=== PATIENT | male | born 1980 | race Caucasian/White ===

== ENCOUNTER 2018-02-01 07:51 | Day surgery (SDC) | payer MEDICAID ==
[~2018-02-01 07:51] MED LIST: ACETAMINOPHEN 1,000 MG/100 ML BTL IV ONE; CEFAZOLIN 2 Gram 2 GM/50 ML BAG IVPB ONE
[2018-02-01] MEDS ORDERED: LIDOCAINE 2% MDV (20MG/ML) 20ML VIAL IV ONE (07:52)
[2018-02-01] MEDS ORDERED: HYDROMORPHONE HCL 2 MG/ML VIAL IV ONE (07:52)
[2018-02-01] MEDS ORDERED: ONDANSETRON HCL IV 4 MG/2 ML VIAL IVP ONE (07:52)
[2018-02-01] MEDS ORDERED: BUPIVACAINE 0.5% W/EPI MPF 30 ML VIAL IVP ONE (07:52)
[2018-02-01] MEDS ORDERED: ROPIVACAINE HCL (NAROPIN) /PF 5MG/ML 20ML VIAL IV ONE (07:52)
[2018-02-01] MEDS ORDERED: BUPIVACAINE LIPOSOME 266MG/20ML VIAL IV ONE (07:52)
[2018-02-01] MEDS ORDERED: KETOROLAC 30 MG/ML VIAL IVP ONE (07:52)
[2018-02-01] MEDS ORDERED: FENTANYL PF 100MCG/2ML VIAL IV ONE (07:52)
[2018-02-01] MEDS ORDERED: DEXAMETHASONE 4 MG/ML 1ML VIAL IVP ONE ×2 (07:52)
[2018-02-01] MEDS ORDERED: MIDAZOLAM HCL 2MG/2ML VIAL IV ONE (07:52)
[2018-02-01] MEDS ORDERED: EPHEDRINE SULFATE 50 MG/ML ML IV ONE (07:52)
[2018-02-01] MEDS ORDERED: PROPOFOL 10 MG/ML VIAL IV ONE (07:52)
[2018-02-01] MEDS ORDERED: DESFLURANE 240 ML BTL INH ONE (07:52)
--- NOTE | 2018-02-03 21:50 | Operative Note ---
DATE OF SURGERY: 02/01/2018. PREOPERATIVE DIAGNOSES: 1. LEFT KNEE ACL RUPTURE. 2. MEDIAL AND LATERAL MENISCUS TEARS. POSTOPERATIVE DIAGNOSIS: 1. LEFT KNEE ACL RUPTURE. 2. MEDIAL AND LATERAL MENISCUS TEARS. PROCEDURE: 1. DIAGNOSTIC ARTHROSCOPY WITH INTRAOPERATIVE FLUOROSCOPIC-ASSISTED ACL RECONSTRUCTION WITH [id number] AUTOGRAFT. 2. ARTHROSCOPIC PARTIAL POSTERIOR HORN MEDIAL AND LATERAL MENISCECTOMIES. SURGEON: ÁNGEL LUKE M.D. ANESTHESIA: SPINAL. COMPLICATIONS: NONE. BLOOD LOSS: MINIMAL. OPERATIVE FINDINGS: Complete rupture of the ACL. Intact PCL. Degenerative shredded tear entire middle and posterior horns of the medial meniscus and a radial tear of the posterior center root of the posterior horn of the lateral meniscus. COMPONENTS PLACED: Two Arthrex Biointerference screws, one 7 mm and one 8 mm. INDICATION FOR OPERATION: This is a 37-year-old male who sustained an injury playing [employer]. He twisted his knee severely and felt a pop and an MRI showed his rupture and he was scheduled for the procedure above. He also had meniscus tears on the MRI. I explained all the risks and benefits to him in detail for the diagnoses and procedures including but not limited to infection, nerve injury, vessel injury, persistent pain, stiffness, numbness and tingling in his knee, re-rupture of the ACL and need for further procedures, blood clot, and all of his questions were answered. Rehab and course were outlined and he agreed to proceed. PROCEDURE: The patient brought to O.R. and placed in the supine position for proper surgery. Nonsterile leg ramos was previously applied and the left lower extremity and knee were prepped and draped in the usual sterile fashion. The right knee was prepped again with ChloraPrep and draped. Intraoperative time- out was performed. Preoperatively, the knee exam revealed he had 2+ Teresa's and anterior drawer and pivot shift, 2+ valgus opening in 30 degrees of flexion and then 0. Next, an anterior incision was marked over the harvest site for bone-patellar tendon-bone, infiltrated with 0.5% Marcaine with Epinephrine. Skin and subcutaneous tissues were dissected down to the bursa. We incised the bursa and the paratenon, elevated off the patellar tendon and exposed that adequately. Next, we planned to use a 2.5 cm bone block proximally and distally. We marked those off with electrocautery and ruler and then we cut it with a saw. We drilled three holes in each bone plug, placed #2 FiberWire suture through there as tag stitches and then connected the two bone plugs for a 1 cm wide graft. We prepared the graft on the back table, again for a 1 cm hole to both sides and marked the femur plug and our tibial plugs. Attention was turned to preparation now. Arthroscopic surgery was performed. We inserted the superior lateral inflow portal. Inferior medial and lateral ports were established and diagnostic arthroscopy performed. The suprapatellar pouch had synovitis and inflammation. It was otherwise normal. The medial gutter was normal. The medial compartment revealed a degenerative, completely shredded tear of the middle and posterior horns of the medial meniscus. We used a combination of basket biters and shaver and trimmed and smoothed that to as smooth and stable surface as possible. The cartilage here was intact. The ACL was completely ruptured, the mid substance. The PCL was intact. The lateral compartment revealed a slight radial tear of the posterior horn of the lateral meniscus. The remainder of the medial and anterior horns were intact. Cartilage was intact. Lateral gutter was normal. The patellofemoral compartment was normal. Next, we inserted a shaver and tissue ablator in the inferior medial portals and prepared both bony surfaces in the lateral femoral condyle wall and the tibial tubercle surfaces identifying the anterior horn of the lateral meniscus edge and the intermeniscal ligament for anatomic landmarks and the intercondylar ridge on the femur side. Next, we used a chondral pick and picked our target sites for our pins for both tunnels. Next, with the knee in about 110 degrees of flexion, we inserted our femoral Beath guide pin through the inferior medial portal and drilled with our low profile reamer a 10 mm hole diameter by about 35 mm deep. Next we then exchanged our suture tagged around the outside of the knee. Next, we then found the entry point and used a tibial tunnel guide, dissected the medial tibial crest, and inserted our guide anteriorly through the patellar tendon site and seated the guide, targeting for 9 mm posterior to the intermeniscal ligament off the lateral surface of the medial tibial eminence and just off the edge of the anterior horn of the lateral meniscus as target sites for anatomic tunnel placement. We then drilled our guide pin and it was in a good spot. Next, we drilled out for a 10 mm hole of the near cortex and then we exchanged our tibial tunnel pin for a colleted pin and then we inserted the acorn reamer and reamed over the top of that and then saved the acorn reamer bone block for later grafting to the harvest sites on the tibia and patella. Next, we then exchanged the graft through with the femoral bone plug docking into the femoral tunnel, tightened tensioning and verified it was completely docked there. Next, we double notched the edge of the hole and inserted a Nitinol guidewire through that notch into the tunnel and then inserted our self-tapping screw, 7 mm x 20 and this had a good purchase, held the bone plugs securely and we pulled distally and it was secure and stable. We put the knee through several ranges of motion and it was isometric. There was no movement of the distal portion of the graft in the distal tibial tunnel. Next, in 30 degrees of flexion, we then double notched our tibial tunnel again, inserted the Nitinol guide pin and then inserted a self-tapping screw there and it fixed the tibial bone plug nicely, securely holding tension on that. Afterwards, anterior drawer, Teresa's and pivot shift were zero. We removed our tag sutures, trimmed the bone plug off the tibial side and then verified the graft did not impinge in extension. Next, the scope and equipment were removed and then we placed our reamer and bone plug in both the tibial and patellar harvest sites with some other more sized bone graft. We closed the patellar tendon with a running 0 Vicryl. We closed the paratenon over the top with a running 2-0 Vicryl. We closed the skin with 2-0 Vicryl and ancelmo. We injected with 0.5% Marcaine with Epinephrine and Exparel throughout the knee deep and superficial. Sterile dressing applied, GIUSEPPE wrap, and a knee brace. Toradol was given. The patient tolerated the procedures well. No intraoperative complications. All sponge, needle, and blade counts correct. Recovery Room stable, neurovascularly intact. She will be discharged as an outpatient and have [facility] nurse and follow-up in two weeks. cc: Primary Care Physician, [place], [place] JOB NUMBER: [id number] [facility]
== END 2018-02-01 15:00 | disposition home or self-care (01) ==
LOC: SUR 07:51
PROVIDERS: ATTEND Orthopaedic Surgery
DX: S83.512A Sprain of anterior cruciate ligament of left knee, initial encounter (principal); S83.282A Other tear of lateral meniscus, current injury, left knee, initial encounter; S83.242A Other tear of medial meniscus, current injury, left knee, initial encounter
CPT/HCPCS: 29870; 29880; 29888; 01400; 64450; J1885; J2405; J3010; J1170; J0690; C9290; J2795; 76942